=== PATIENT | female | born 1970 | race Caucasian/White ===

== ENCOUNTER → 2020-08-18 | Outpatient (CLI) | payer OTHER ==
--- NOTE | 2020-08-19 14:23 | US ---
EXAMINATION TYPE: US pelvic complete DATE OF EXAM: 08/18/2020 COMPARISON: NONE CLINICAL HISTORY: R10.2 PELVIC PAIN. TECHNIQUE: Transabdominal (TA). Date of LMP: 08-08-20 EXAM MEASUREMENTS: Uterus: 9.8 x 4.3 x 5.6 cm Endometrial Stripe: 0.6 cm Right Ovary: 2.9 x 2.0 x 1.9 cm Left Ovary: 1.7 x 1.4 x 1.5 cm 1. Uterus: Anteverted wnl 2. Endometrium: wnl 3. Right Ovary: There is a 1.8 x 1.3 cm hypoechoic area within the right ovary. Posterior wall enhan cement is not identified. This cannot be classified as a simple cyst. Follow-up exam in 6 weeks or ad ditional workup would be recommended. 4. Left Ovary: wnl 5. Bilateral Adnexa: wnl 6. Posterior cul-de-sac: wnl IMPRESSION: 1. Nonspecific cyst right ovary. Follow-up or additional workup would be recommended. 2. Pelvic ultrasound is otherwise unremarkable.
== END | disposition home or self-care (01) ==
LOC: RADUSWWP 16:13
PROVIDERS: ATTEND Obstetrics & Gynecology
DX: N83.201 Unspecified ovarian cyst, right side (principal)
CPT/HCPCS: 76856

== ENCOUNTER → 2020-10-27 | Outpatient (CLI) | payer OTHER ==
--- NOTE | 2020-11-06 08:54 | MM ---
Reason for exam: screening (asymptomatic). Last mammogram was performed 1 year and 3 months ago. History: Patient had first child at age 34. Physical Findings: A clinical breast exam by your physician is recommended on an annual basis and results should be correlated with mammographic findings. MG 3D Screening Mammo W/Cad Bilateral CC and MLO view(s) were taken. Prior study comparison: July 19, 2019, mammogram, performed at [place]. June 01, 2018, mammogram, performed at [place]. September 10, 2013, bilateral digital screening mammo w/CAD. The breast tissue is heterogeneously dense. This may lower the sensitivity of mammography. Finding: There is a 3 mm high density, circumscribed oval mass located 5 cm from the nipple in the upper outer quadrant, middle position of the right breast. There is a 3mm nodule inferior medial right middle breast 10cm from the nipple. New finding since July 19, 2019. ASSESSMENT: Incomplete: need additional imaging evaluation, BI-RAD 0 RECOMMENDATION: Special view mammogram of both breasts. If lesion persists on supplemental views, image directed ultrasound is recommended. [facility] will attempt to contact patient to return for supplemental views and ultrasound if indicated.
== END | disposition home or self-care (01) ==
LOC: RADMAMWWP 16:42
PROVIDERS: ATTEND Obstetrics & Gynecology
DX: Z12.31 Encounter for screening mammogram for malignant neoplasm of breast (principal)
CPT/HCPCS: 77063; 77067

== ENCOUNTER → 2020-11-17 | Outpatient (CLI) | payer OTHER ==
--- NOTE | 2020-11-20 09:10 | MM ---
Reason for exam: additional evaluation requested from abnormal screening. Last mammogram was performed 1 month ago. History: Patient had first child at age 34. Physical Findings: Nurse did not find any significant physical abnormalities on exam. MG 3D Work Up W/Cad KENDELL Bilateral CC and MLO view(s) were taken. Prior study comparison: October 27, 2020, bilateral MG 3d screening mammo w/cad. July 19, 2019, mammogram, performed at [place]. The breast tissue is heterogeneously dense. This may lower the sensitivity of mammography. 5mm circumscribed isodense nodule lower inner quadrant right breast persists and is new. Ultrasound recommended 3-5 o'clock. Central nodularity left CC view does not clearly persist. 6 month follow up recommended. These results were verbally communicated with the patient and result sheet given to the patient on 11/17/20. ASSESSMENT: Incomplete: need additional imaging evaluation, BI-RAD 0 RECOMMENDATION: Ultrasound of the right breast. (3-5 o'clock)
--- NOTE | 2020-11-20 09:11 | USB ---
Reason for exam: additional evaluation requested from abnormal screening. History: Patient had first child at age 34. US Breast Workup Limited RT Technologist: Swetha Jarquin Right limited breast ultrasound including focal area of concern, retroareolar and axilla demonstrates a 0.6 x 0.5 x 0.4cm possible cystic cluster at 4 o'clock, likely mammographic correlate. Scanned 3-5 o'clock. These results were verbally communicated with the patient and result sheet given to the patient on 11/17/20. ASSESSMENT: Probably benign, BI-RAD 3 RECOMMENDATION: Follow-up diagnostic mammogram of both breasts in 6 months.
== END | disposition home or self-care (01) ==
LOC: RADMAMWWP 14:55
PROVIDERS: ATTEND Obstetrics & Gynecology
DX: R92.2 Inconclusive mammogram (principal)
CPT/HCPCS: 77062; 77066

== ENCOUNTER → 2021-07-05 | Outpatient (CLI) | payer OTHER ==
--- NOTE | 2021-07-06 11:42 | MM ---
Reason for exam: follow-up at short interval from prior study. Last mammogram was performed 8 months ago. History: Patient had first child at age 34. Physical Findings: Nurse Summary: 1cm nodule in the right breast at 10-11 o'clock (nurse TM). MG 3D Diag Mammo W/Cad KENDELL Bilateral CC and MLO view(s) were taken. Prior study comparison: November 17, 2020, bilateral MG 3d work up w/cad KENDELL. October 27, 2020, bilateral MG 3d screening mammo w/cad. The breast tissue is heterogeneously dense. This may lower the sensitivity of mammography. Stable nodule right breast at 4 o'clock. These results were verbally communicated with the patient and result sheet given to the patient on 07/05/21. ASSESSMENT: Incomplete: need additional imaging evaluation, BI-RAD 0 RECOMMENDATION: Ultrasound of the right breast.
--- NOTE | 2021-07-06 11:44 | USB ---
Reason for exam: additional evaluation requested from abnormal screening. History: Patient had first child at age 34. US Breast Limited RT Right limited breast ultrasound including focal area of concern, retroareolar and axilla demonstrates a 0.4 x 0.4 x 0.3cm oval, irregular, cystic cluster at 4 o'clock, a 0.4 x 0.3 x 0.2cm oval, cystic lesion at 10 o'clock, duct ectasia at the posterior nipple and a 0.9 x 1.0 x 0.8cm lymph node at the axilla. These results were verbally communicated with the patient and result sheet given to the patient on 07/05/21. ASSESSMENT: Probably benign, BI-RAD 3 RECOMMENDATION: Routine screening mammogram of both breasts in 1 year.
== END ==
LOC: RADMAMWWP 15:05
PROVIDERS: ATTEND Obstetrics & Gynecology
DX: R92.8 Other abnormal and inconclusive findings on diagnostic imaging of breast (principal); N63.0 Unspecified lump in unspecified breast
CPT/HCPCS: 77062; 77066

== ENCOUNTER 2021-08-16 16:11 | Emergency (ER) | payer OTHER ==
[2021-08-16 16:29] VITALS: TEMP 98.1
[2021-08-16] MEDS ORDERED: ONDANSETRON 4 MG/2 ML VIAL IVP STA (16:51)
[2021-08-16] MEDS ORDERED: SODIUM CHLORIDE 0.9% 1,000 ML IV STA (16:51)
[2021-08-16] MEDS ORDERED: KETOROLAC 15 MG/ML 1 ML VIAL IVP STA (16:51)
--- NOTE | 2021-08-16 16:53 | ED ---
General Adult HPI - General Chief complaint: Shortness of Breath Stated complaint: Hypertension Time Seen by Provider: 08/16/21 16:31 Source: patient Mode of arrival: ambulatory Limitations: no limitations - History of Present Illness Initial comments: Dictation was produced using [employer] dictation software. please excuse any grammatical, word or spelling errors. Chief Complaint: Patient is a 50-year-old female sent in by publicity director for evaluation of hypertension History of Present Illness: Patient is a 42-year-old female she has past medical history of osteoarthritis. She was at her publicity director office for a routine annual female checkup. She had her vitals drawn there and had elevated blood pressures. Her systolic blood pressure was approximately 180. Patient states that she has no active issues at the time. Denies any chest pain or shortness of breath. She does feel a slight fullness to her lower neck upper chest area. She denies that its pain. No associated diaphoresis, nausea or vomiting or radiation of symptoms. Patient does not have a history of coronary artery disease. Patient states she checked her blood pressure last week which was also elevated to the 180s. She had checked her blood pressure proximal to 1 month ago which was also elevated at 160. Patient has not seen primary care doctor regarding this. Patient states that over the last week she's had episodes of seeing a halo around her eyes patient denies any eye symptoms currently. She is trying to make an appointment with adolescent specialist in the near future. Patient has a mild headache. She has history of headaches. She states her headache is typical of her usual headaches. States his whole cranial not severe and not thunderclap. The ROS documented in this emergency department record has been reviewed and confirmed by me. Those systems with pertinent positive or negative responses have been documented in the HPI. All other systems are other negative and/or noncontributory. PHYSICAL EXAM: General Impression: Alert and oriented x3, not in acute distress HEENT: Normocephalic atraumatic, extra-ocular movements intact, pupils equal and reactive to light bilaterally, mucous membranes moist. Cardiovascular: Heart regular rate and rhythm Chest: Able to complete full sentences, no retractions, no tachypnea Abdomen: abdomen soft, non-tender, non-distended, no organomegaly Musculoskeletal: Pulses present and equal in all extremities, no peripheral edema Motor: no focal deficits noted Neurological: CN II-XII grossly intact, no focal motor or sensory deficits noted Skin: Intact with no visualized rashes Psych: Normal affect and mood ED course: No well-appearing female sent in by publicity director for evaluation of h ypertension. Physical examination is benign. Vital signs are stable. Patient has had elevated blood pressures for at least last months. Blood pressure on arrival was 188/93. Patient does not have any features of hypertensive emergency or urgency. She is well-appearing at bedside. EKGs normal. Laboratory evaluation obtained. CBC, metabolic panel is unremarkable. No signs of acute kidney injury. Patient reevaluated 5:51 PM found to be in stable medical condition. She is blood pressure still elevated. clinical presentation consistent with hypertension. She is advised follow-up with primary care doctor or outpatient management of hypertension. Patient is agreeable to plan. Return precautions discussed. EKG interpretation: Ventricular rate 71, normal sinus rhythm, RI interval 144, QRS 70, QTC 425. No RI prolongation, no QTC prolongation, no ST or T-wave changes noted. EKG compared to [default value] showing no changes. Overall, this EKG is unremarkable - Related Data Allergies Allergy/AdvReac Type Severity Reaction Status Date / Time infliximab [From Remicade] Allergy Unknown Verified 08/16/21 16:29 Review of Systems ROS Statement: Those systems with pertinent positive or pertinent negative responses have been documented in the HPI. ROS Other: All systems not noted in ROS Statement are negative. Past Medical History Past Medical History: Osteoarthritis (OA) History of Any Multi-Drug Resistant Organisms: None Reported Additional Past Surgical History / Comment(s): laminectomy, Past Psychological History: No Psychological Hx Reported Smoking Status: Never smoker Past Alcohol Use History: None Reported Past Drug Use History: None Reported General Exam Limitations: no limitations Course Vital Signs 08/16/21 16:25 Temperature 98.1 F Pulse Rate 83 Respiratory 16 Rate Blood Pressure 188/93 O2 Sat by Pulse 98 Oximetry Medical Decision Making - Lab Data Result diagrams: 08/16/21 16:59 08/16/21 16:59 Lab Results 08/16/21 08/16/21 Range/Units 16:59 16:59 WBC 7.2 (3.8-10.6) k/uL RBC 4.79 (3.80-5.40) m/uL Hgb 14.0 (11.4-16.0) gm/dL Hct 42.2 (34.0-46.0) % MCV 88.1 (80.0-100.0) fL MCH 29.2 (25.0-35.0) pg MCHC 33.2 (31.0-37.0) g/dL RDW 13.7 (11.5-15.5) % Plt Count 332 (150-450) k/uL MPV 7.4 Neutrophils % 57 % Lymphocytes % 33 % Monocytes % 4 % Eosinophils % 2 % Basophils % 1 % Neutrophils # 4.1 (1.3-7.7) k/uL Lymphocytes # 2.3 (1.0-4.8) k/uL Monocytes # 0.3 (0-1.0) k/uL Eosinophils # 0.2 (0-0.7) k/uL Basophils # 0.1 (0-0.2) k/uL Sodium 139 (137-145) mmol/L Potassium 4.3 (3.5-5.1) mmol/L Chloride 103 (98-107) mmol/L Carbon Dioxide 27 (22-30) mmol/L Anion Gap 9 mmol/L BUN 18 H (7-17) mg/dL Creatinine 0.65 (0.52-1.04) mg/dL Est GFR (CKD-EPI)AfAm >90 (>60 ml/min/1.73 sqM) Est GFR (CKD-EPI)NonAf >90 (>60 ml/min/1.73 sqM) Glucose 83 (74-99) mg/dL Calcium 9.5 (8.4-10.2) mg/dL Disposition Clinical Impression: Hypertension Disposition: HOME SELF-CARE Condition: Good Instructions (If sedation given, give patient instructions): Hypertension (ED) Is patient prescribed a controlled substance at d/c from ED?: No Referrals: Denise Dyer MD [Primary Care Provider] - 1-2 days
[2021-08-16 17:08] LABS: Basophils # (A) 0.1 k/uL (0-0.2); Basophils % (A) 1 %; Eosinophils # (A) 0.2 k/uL (0-0.7); Eosinophils % (A) 2 %; HCT 42.2 % (34.0-46.0); Lymphocytes # (A) 2.3 k/uL (1.0-4.8); Lymphocytes % (A) 33 %; MCH 29.2 pg (25.0-35.0); MCHC 33.2 g/dL (31.0-37.0); MCV 88.1 fL (80.0-100.0); Mean Platelet Volume 7.4; Monocytes # (A) 0.3 k/uL (0-1.0); Monocytes % (A) 4 %; Neutrophils # (A) 4.1 k/uL (1.3-7.7); Neutrophils % (A) 57 %; Platelet Count 332 k/uL (150-450); RBC 4.79 m/uL (3.80-5.40); RDW 13.7 % (11.5-15.5); WBC 7.2 k/uL (3.8-10.6)
[2021-08-16 17:23] LABS: African American GFR (CKD) >90 (>60 ml/min/1.73 sqM); Anion Gap 9 mmol/L; Blood Urea Nitrogen 18 mg/dL (7-17); Calcium 9.5 mg/dL (8.4-10.2); Carbon Dioxide 27 mmol/L (22-30); Chloride 103 mmol/L (98-107); Glucose 83 mg/dL (74-99); Non-African American GFR(CKD) >90 (>60 ml/min/1.73 sqM); Potassium 4.3 mmol/L (3.5-5.1); Sodium 139 mmol/L (137-145)
[2021-08-16 18:04] VITALS: BP 172/100; PULSE 80; RESP 18
== END 2021-08-16 18:03 | disposition home or self-care (01) ==
LOC: EC 16:11
DX: I10 Essential (primary) hypertension (principal); Z88.8 Allergy status to other drugs, medicaments and biological substances
CPT/HCPCS: 36415; 80048; 85025; 99285; 96374; 96375; 96361; J2405; J1885

== ENCOUNTER → 2022-04-08 | Outpatient (CLI) | payer OTHER ==
[2022-04-08 09:10] VITALS: BP 170/86; PULSE 73; RESP 18; TEMP 98.1
--- NOTE | 2022-04-08 16:18 | P.PAINPG ---
PQRS Measure Charge Sheet Comment: HISTORY OF PRESENT ILLNESS: 51 yr old female as a referral from Dr. Jim presents today w severe and chronic neck pain secondary to spondylosis, DDD, facet arthropathy without myelopathy for evaluation. Pt states her pain level is currently at 6/10 in intensity, constant, sharp in character, localized in the lower cervical spine between the shoulders without radiation of pain. Pain is provoked w lateral flexion and forward flexion. Pain is relieved w medications (Ibuprofen), heat, PT x 2 mo which she is currently in, home stretching regimen, repositioning and rest. PMH: OA, HTN, Hyperlipidemia, Psoriatic Arthritis, Vitamin D Deficiency PSH: Lumbar laminectomy, L Wrist Ganglion Cystectomy SH: Never smoker, No ETOH abuse, No illicit drug use. FH: DM, CAD All: See list Meds: See list REVIEW OF ORGAN SYSTEMS: CONSTITUTIONAL: No fevers or chills. No recent weight loss. NEUROLOGICAL: + numbness and tingling along the distal extremities. No seizure disorders or headaches. MUSCULOSKELETAL: + pain PSYCHIATRIC: Denies current depression or suicidal thoughts. Physical Examinations : Constitutional : Cooperative , not in acute distress . Neurologic : Cranial nerve II to XII intact. No focal neurological deficits. Psychiatric : alert & oriented x 3. Matching mood & appropriate affect. Judgment & insight intact. Musculoskeletal : Cervical Spine Motor strength in the deltoid and biceps: Normal right side. Normal Left side Motor strength biceps and the wrist extensors: Normal right side . Normal left side Motor strength in the triceps muscle: Normal right side. Normal left side Deep tendon reflexes: Normal at the biceps. Normal at Brachioradialis. Normal at triceps Vertebral body tenderness to deep palpation over C6 Cervical facet loading test: positive bilaterally Spurling test: positive bilaterally Neck distraction test: positive bilaterally Twan sign: positive bilaterally Lumbar spine Motor strength lower extremities ,thigh and legs 5/5 Right side , 5/5 Left side Deep tendon reflexes : Normal Knee Jerk. Normal Ankle Jerk Vertebral body tenderness over Lumbar facet Loading Test: positive Right / positive Left Range of motion of the lumbar spine Flexion 30 degrees, extension 10 degrees Straight Leg Raise test: Left/ Right positive at degree Lul test: positive right / positive left. Severe tenderness over the Sacroiliac joint on the Right / Left sides Gaenslen test: positive bilaterally Seated flexion test: positive bilaterally. Sacral spine : Severe tenderness over the Sacroiliac joint: right side / left side Range of motion: Flexion of the lumbar spine <60 degrees Range of motion: Extension of the lumbar spine <20 degrees Gaenslen's Test positive Basil's Test positive Lul test: positive right side / left side Thigh Thrust Test Sacral Thrust Test Imaging: MRI without contrast of the cervical spine from 03/13/22 reviewed EMG of the upper extremities from 01/31/22 was negative Assessment/ Plan : Cervical DDD, Cervical spondylosis Recommendation of DASIA C6-C7 #1. Patient may need a series of injections, up to 3 within a six-month timeframe, for optimal pain relief. Risks, benefits of procedure discussed and patient verbalized understanding. Denies aspirin or anti- coagulant use or medical history of diabetes. Protocol for discontinuation/ continuation of medications ngozi procedure discussed. All questions answered. I have spent greater than 30 minutes on patient care today. Dr Schneider was available by phone for the evaluation of this patient. The time was used to review the medical records including relevant urine studies and Prescription history (MAPs), review of the available imaging, evaluation and examination of the patient, coordination of care with the medical staff and if applicable referring physicians, as well as creation of the medical record Controlled Substance Measures - Controlled Substance Measures Is patient prescribed a controlled substance at discharge?: No
== END | disposition home or self-care (01) ==
LOC: PNWHC3 07:57
PROVIDERS: ATTEND Specialist
DX: M54.12 Radiculopathy, cervical region (principal)
CPT/HCPCS: 99211

== ENCOUNTER → 2022-11-25 | Outpatient (CLI) | payer OTHER ==
--- NOTE | 2022-11-26 19:21 | MM ---
Reason for Exam: Screening (asymptomatic). Last mammogram was performed 1 year(s) and 5 month(s) ago. Patient History: Menarche at age 14. First Full-Term at age 34. Late child-bearing (after 30). Patient has history of breast feeding. Last menstrual period: 11/08/2022 Risk Values: Iesha 5 year model risk: 1.3%. NCI Lifetime model risk: 12.1%. Prior Study Comparison: 10/27/2020 Bilateral Screening Mammogram, [facility]. 11/17/2020 Bilateral Diagnostic Mammogram, [facility]. 07/05/2021 Bilateral Diagnostic Mammogram, [facility]. Tissue Density: The breast tissue is heterogeneously dense. This may lower the sensitivity of mammography. Findings: Analyzed By CAD. Chronic nodularity medial right breast. There is no suspicious group of microcalcifications or new suspicious mass in either breast. Overall Assessment: Benign, BI-RAD 2 Management: Screening Mammogram of both breasts in 1 year. . Patient should continue monthly self-breast exams. A clinical breast exam by your physician is recommended on an annual basis. This exam should not preclude additional follow-up of suspicious palpable abnormalities. Note on Iesha scores and lifetime risk: 1. A Iesha score greater than 3% is considered moderate risk. If this is the case, consider specialist referral to assess eligibility for a risk reducing agent. 2. If overall lifetime risk for the development of breast cancer is 20% or higher, the patient may qualify for future screening with alternating mammogram and breast MRI. Electronically signed and approved by: Behzad Bentley M.D. Radiologist
== END | disposition home or self-care (01) ==
LOC: RADMAMWWP 16:46
PROVIDERS: ATTEND Obstetrics & Gynecology
DX: Z12.31 Encounter for screening mammogram for malignant neoplasm of breast (principal)
CPT/HCPCS: 77063; 77067

== ENCOUNTER → 2024-01-02 | Outpatient (CLI) | payer OTHER ==
--- NOTE | 2024-01-05 13:20 | MM ---
Reason for Exam: Screening (asymptomatic). Last mammogram was performed 1 year(s) and 1 month(s) ago. Patient History: Menarche at age 14. First Full-Term at age 34. Late child-bearing (after 30). Patient has history of breast feeding. Risk Values: Iesha 5 year model risk: 1.4%. NCI Lifetime model risk: 12.0%. Prior Study Comparison: 11/17/2020 Bilateral Diagnostic Mammogram, [facility]. 07/05/2021 Bilateral Diagnostic Mammogram, [facility]. 11/25/2022 Bilateral MG 3D screening mammo w/cad, [facility]. Tissue Density: There are scattered areas of fibroglandular density. Findings: Analyzed By CAD. There is no suspicious group of microcalcifications or new suspicious mass in either breast. Overall Assessment: Negative, BI-RAD 1 Management: Screening Mammogram of both breasts in 1 year. . Patient should continue monthly self-breast exams. A clinical breast exam by your physician is recommended on an annual basis. This exam should not preclude additional follow-up of suspicious palpable abnormalities. Note on Iesha scores and lifetime risk: 1. A Iesha score greater than 3% is considered moderate risk. If this is the case, consider specialist referral to assess eligibility for a risk reducing agent. 2. If overall lifetime risk for the development of breast cancer is 20% or higher, the patient may qualify for future screening with alternating mammogram and breast MRI. Electronically signed and approved by: Ty Pinedo M.D. Radiologis
== END | disposition home or self-care (01) ==
LOC: RADMAMWWP 13:43
PROVIDERS: ATTEND Obstetrics & Gynecology
DX: Z12.31 Encounter for screening mammogram for malignant neoplasm of breast (principal)
CPT/HCPCS: 77063; 77067

== ENCOUNTER → 2024-10-13 | Outpatient (CLI) | payer OTHER ==
[2024-10-13 15:54] LABS: Basophils # (A) 0.07 X 10*3/uL (0.00-0.10); Basophils % (A) 1.6 %; Eosinophils # (A) 0.13 X 10*3/uL (0.04-0.35); Eosinophils % (A) 2.9 %; HCT 46.3 % (37.2-46.3); HGB 14.4 g/dL (12.0-15.0); Lymphocytes # (A) 1.73 X 10*3/uL (0.90-5.00); Lymphocytes % (A) 38.6 %; MCH 27.9 pg (27.0-32.0); MCHC 31.1 g/dL (32.0-37.0); MCV 89.6 FL (80.0-97.0); Monocytes # (A) 0.25 X 10*3/uL (0.20-1.00); Monocytes % (A) 5.6 %; NRBC Per 100 WBC 0 X 10*3/uL (0.00-0.01); Neutrophils # (A) 2.29 X 10*3/uL (1.80-7.70); Neutrophils % (A) 51.1 %; Platelet Count 300 X 10*3/uL (140-440); RBC 5.17 X 10*6/uL (4.10-5.20); RDW 13.5 % (11.5-14.5); WBC 4.48 X 10*3/uL (4.50-10.00)
[2024-10-13 16:23] LABS: ALT 30 U/L (8-44); AST 20 U/L (13-35); Albumin 4.3 g/dL (3.8-4.9); Albumin/Globulin Ratio 1.54 Ratio (1.60-3.17); Alkaline Phosphatase 88 U/L (41-126); Bilirubin, Conjugated <0.20 mg/dL (0.20-0.40); Bilirubin,Unconjugated >0.10 mg/dL (0.20-1.00); Globulin 2.8 g/dL (1.6-3.3); Total Bilirubin 0.3 mg/dL (0.3-1.2); Total Protein 7.1 g/dL (6.2-8.2)
== END | disposition home or self-care (01) ==
LOC: LABWHC1 07:57
PROVIDERS: ATTEND Physician Assistant
DX: Z51.81 Encounter for therapeutic drug level monitoring (principal); L40.50 Arthropathic psoriasis, unspecified; L40.9 Psoriasis, unspecified; Z79.899 Other long term (current) drug therapy
CPT/HCPCS: 36415; 80076; 82565; 85025

== ENCOUNTER 2024-11-26 09:55 | Emergency (ER) | payer OTHER ==
[2024-11-26 09:59] VITALS: RESP 18
--- NOTE | 2024-11-26 10:26 | ED ---
Abdominal Pain HPI - General Chief Complaint: Abdominal Pain Stated Complaint: abd pain Time Seen by Provider: 11/26/24 10:25 Source: patient, RN notes reviewed Mode of arrival: ambulatory Limitations: no limitations - History of Present Illness Initial Comments: 54-year-old female presenting to the ER for evaluation of epigastric abdominal pain. Patient states after eating dinner on Friday night around 7 PM she started to experience a cramping epigastric abdominal pain. She states it feels like she is wearing her bra too tight. She does report pain is intermittent with no known triggers. She states around 10 PM on Friday she started to hav e nausea and vomiting along with diarrhea. She denies any hematic emesis, coffee ground emesis, hematochezia or melena. Patient states this has happened in the past and she contributed it to eating foods with a large amount of onion or garlic. She does report a history of a stomach ulcer and she states this feels mildly similar. Patient has taken Pepcid and antiacids without relief of symptoms. She is also reported pain is improved with heating pad and hot showers. She denies any fevers, chills, chest pain, shortness of breath, dizziness or lightheadedness. No urinary complaints. No other complaints at this time - Related Data Home Medications Medication Instructions Recorded Confirmed Cholecalciferol [Vitamin D3 (25 25 mcg PO DAILY 11/26/24 11/26/24 Mcg = 1000 Iu)] Fish Oil/Dha/Epa [Fish Oil 1,200 1 cap PO DAILY 11/26/24 11/26/24 mg Fish Oil] Leflunomide [Arava] 20 mg PO DAILY 11/26/24 11/26/24 Tretinoin [Tretinoin 0.025%] 1 applic TOPICAL HS 11/26/24 11/26/24 Triamcinolone 0.1% Ointment 1 applic TOPICAL DAILY PRN 11/26/24 11/26/24 [Kenalog 0.1% Ointment] Ustekinumab [Stelara] 45 mg SQ Q84D 11/26/24 11/26/24 hydroCHLOROthiazide [Hydrodiuril] 25 mg PO DAILY 11/26/24 11/26/24 Allergies Allergy/AdvReac Type Severity Reaction Status Date / Time infliximab [From Remicade] Allergy Anaphylaxis Verified 11/26/24 12:48 Review of Systems ROS Statement: Those systems with pertinent positive or pertinent negative responses have been documented in the HPI. ROS Other: All systems not noted in ROS Statement are negative. Past Medical History Past Medical History: Osteoarthritis (OA) History of Any Multi-Drug Resistant Organisms: None Reported Past Surgical History: Back Surgery Additional Past Surgical History / Comment(s): laminectomy, kidney stone removal, Past Psychological History: No Psychological Hx Reported Smoking Status: Never smoker Past Alcohol Use History: Rare Past Drug Use History: None Reported General Exam Limitations: no limitations General appearance: alert, in no apparent distress Respiratory exam: Present: normal lung sounds bilaterally. Absent: respiratory distress, wheezes, rales, rhonchi, stridor Cardiovascular Exam: Present: regular rate, normal rhythm, normal heart sounds. Absent: systolic murmur, diastolic murmur, rubs, gallop, clicks GI/Abdominal exam: Present: soft, tenderness (epigastric/RUQ), normal bowel sounds Neurological exam: Present: alert, oriented X3, CN II-XII intact Skin exam: Present: warm, dry, intact, normal color. Absent: rash Course Vital Signs 11/26/24 11/26/24 09:56 12:58 Temperature 98.4 F Pulse Rate 80 67 Respiratory 18 18 Rate Blood Pressure 185/114 147/89 O2 Sat by Pulse 98 98 Oximetry - Reevaluation(s) Reevaluation #1: 11/26/24 12:52 Case discussed with [facility], accepts transfer. Medical Decision Making - Medical Decision Making Was pt. sent in by a medical professional or institution (, PA, TELEVISION NEWS PRODUCER, urgent care, hospital, or jail...) When possible be specific @ -No Did you speak to anyone other than the patient for history (EMS, parent, family, police, friend...)? What history was obtained from this source @ -No Did you review nursing and triage notes (agree or disagree)? Why? @ -I reviewed and agree with nursing and triage notes Were old charts reviewed (outside hosp., previous admission, EMS record, old EKG, old radiological studies, urgent care reports/EKG's, jail records)? Report findings @ -No old charts were reviewed Differential Diagnosis (chest pain, altered mental status, abdominal pain women, abdominal pain men, vaginal bleeding, weakness, fever, dyspnea, syncope, headache, dizziness, GI bleed, back pain, seizure, CVA, palpatations, mental health, musculoskeletal)? @ -Differential Abdominal Pain Women:Appendicitis, Cholecystitis, diverticulosis, ischemic bowel, pancreatitis, hepatitis, UTI, gastroenteritis, AAA, incarcerated hernia, bowel obstruction, constipation, inflammatory bowel, hepatitis, peptic ulcer disease, splenic infarction, perforated viscus, vulvitis, ovarian torsion, PID, kidney stone, placenta abruption, this is not meant to be an all-inclusive list EKG interpreted by me (3pts min.). @ -As above X-rays interpreted by me (1pt min.). @ -None done CT interpreted by me (1pt min.). @ -None done U/S interpreted by me (1pt. min.). @ -Gallbladder ultrasound showing a probable septated cyst near the rupinder hepatis. No gallbladder wall thickening or pericholecystic fluid. Common bile duct mildly enlarged measuring 0.62 cm. What testing was considered but not performed or refused? (CT, X-rays, U/S, labs)? Why? @ -None What meds were considered but not given or refused? Why? @ -None Did you discuss the management of the patient with other professionals (professionals i.e. , PA, TELEVISION NEWS PRODUCER, lab, RT, psych nurse, social organization professor, plant tender, teacher, hospital admissions officer, clinical case manager)? Give summary @ -Yes, case discussed with Dr. Tej Rosado. He accepts transfer for GI consultation. Was smoking cessation discussed for >3mins.? @ -No Was critical care preformed (if so, how long)? @ -No Were there social determinants of health that impacted care today? How? (Homelessness, low income, unemployed, alcoholism, drug addiction, transportation, low edu. Level, literacy, decrease access to med. care, group home, rehab)? @ -No Was there de-escalation of care discussed even if they declined (Discuss DNR or withdrawal of care, Hospice)? DNR status @ -No What co-morbidities impacted this encounter? (DM, HTN, Smoking, COPD, CAD, Cancer, CVA, ARF, Chemo, Hep., AIDS, mental health diagnosis, sleep apnea, morbid obesity)? @ -None Was patient admitted / discharged? Hospital course, mention meds given and route, prescriptions, significant lab abnormalities, going to OR and other pertinent info. @ -Transferred. 54-year-old female presenting the ER for evaluation of epigastric abdominal pain. Upon arrival patient hypertensive 185/114 but is oth erwise acceptable limits. Patient appears well-developed and well-nourished and no signs of acute distress. There is epigastric/right upper quadrant abdominal discomfort. Normal bowel sounds without rebound or guarding. Laboratory studies obtained remarkable for transaminitis with a total bilirubin of 3.5, AST 365, ALT 508, alk phos 139. WBC 6.12, lactic 1.8. Lipase 68. Urinalysis with 12 WBCs and large leukocyte esterases sample is contaminated with 8 epithelial cells, urine will be sent for culture prior to antibiotic initiation. EKG showing a sinus rhythm no acute evidence of infarct or ischemia. Gallbladder ultrasound showed a probable septated cyst near the rupinder hepatis there is no gallbladder wall thickening or pericholecystic fluid. Common bile duct is mildly dilated 0.62 cm. Due to concern of choledocholithiasis with common bile duct dilation and transaminitis, transferred was considered, discussed and accepted by Dr. Burnham, [facility], for further evaluation. Patient received symptomatic treatment in the ER with IV fluids, Toradol, Zofran, Protonix and Dilaudid. Blood cultures obtained prior to Zosyn initiation for infection prophylaxis. Patient agreeable for transfer and will be transferred in stable condition [facility]. Case discussed with ED attending, Dr. Bocanegra. Undiagnosed new problem with uncertain prognosis? @ -No Drug Therapy requiring intensive monitoring for toxicity (Heparin, Nitro, In sulin, Cardizem)? @ -No Were any procedures done? @ -No Diagnosis/symptom? @ -Transaminitis/abdominal pain r/o choledocholithiasis Acute, or Chronic, or Acute on Chronic? @ -Acute Uncomplicated (without systemic symptoms) or Complicated (systemic symptoms)? @ -Complicated Side effects of treatment? @ -No Exacerbation, Progression, or Severe Exacerbation? @ -No Poses a threat to life or bodily function? How? (Chest pain, USA, SC, pneumonia, PE, COPD, DKA, ARF, appy, cholecystitis, CVA, Diverticulitis, Homicidal, Suicidal, threat to staff... and all critical care pts) @ -Yes, can lead to cholangitis and/or sepsis. - Lab Data Result diagrams: 11/26/24 10:44 11/26/24 10:44 Lab Results 11/26/24 11/26/24 11/26/24 Range/Units 10:44 10:44 10:44 WBC 6.12 (4.50-10.00) 10*3/uL RBC 5.31 H (4.10-5.20) 10*6/uL Hgb 15.4 H (12.0-15.0) g/dL Hct 45.6 (37.2-46.3) % MCV 85.9 (80.0-97.0) fL MCH 29.0 (27.0-32.0) pg MCHC 33.8 (32.0-37.0) g/dL Plt Count 265 (140-440) 10*3/uL MPV 10.9 (9.5-12.2) fL Immature Gran % (Auto) 0 % Neutrophils % 77.1 % Lymphocytes % 14.9 % Monocytes % 4.4 % Eosinophils % 2.6 % Basophils % 1.0 % Immature Gran # 0.00 (0.00-0.04) 10*3/uL Neutrophils # 4.72 (1.80-7.70) 10*3/uL Lymphocytes # 0.91 (0.90-5.00) 10*3/uL Monocytes # 0.27 (0.20-1.00) 10*3/uL Eosinophils # 0.16 (0.04-0.35) 10*3/uL Basophils # 0.06 (0.00-0.10) 10*3/uL Sodium 141 (137-145) mmol/L Potassium 3.6 (3.5-5.1) mmol/L Chloride 103 (98-107) mmol/L Carbon Dioxide 30 (22-30) mmol/L Anion Gap 8 mmol/L BUN 21 H (7-17) mg/dL Creatinine 0.57 (0.52-1.04) mg/dL Est GFR (CKD-EPI)AfAm >90 (>60 ml/min/1.73 sqM) Est GFR (CKD-EPI)NonAf >90 (>60 ml/min/1.73 sqM) Glucose 134 H (74-99) mg/dL Plasma Lactic Acid Viktor (0.7-2.0) mmol/L Calcium 10.0 (8.4-10.2) mg/dL Total Bilirubin 3.5 H (0.2-1.3) mg/dL AST 365 H (14-36) U/L ALT 508 H (4-34) U/L Alkaline Phosphatase 139 H (38-126) U/L Total Protein 7.4 (6.3-8.2) g/dL Albumin 4.4 (3.5-5.0) g/dL Amylase 51 (30-110) U/L Lipase 68 (23-300) U/L Urine Color Yellow Urine Appearance Cloudy H (Clear) Urine pH 6.0 (5.0-8.0) Ur Specific [place] 1.020 (1.001-1.035) Urine Protein Trace H (Negative) Urine Glucose (UA) Negative (Negative) Urine Ketones Negative (Negative) Urine Blood Negative (Negative) Urine Nitrite Negative (Negative) Urine Bilirubin 1+ H (Negative) Urine Urobilinogen 3.0 (<2.0) mg/dL Ur Leukocyte Esterase Large H (Negative) Urine WBC 12 H (0-5) /hpf Ur Squamous Epith Cells 8 H (0-4) /hpf Uric Acid Crystals Occasional H (None) /hpf Urine Bacteria Rare H (None) /hpf Urine Mucus Rare H (None) /hpf 11/26/24 Range/Units 10:44 WBC (4.50-10.00) 10*3/uL RBC (4.10-5.20) 10*6/uL Hgb (12.0-15.0) g/dL Hct (37.2-46.3) % MCV (80.0-97.0) fL MCH (27.0-32.0) pg MCHC (32.0-37.0) g/dL Plt Count (140-440) 10*3/uL MPV (9.5-12.2) fL Immature Gran % (Auto) % Neutrophils % % Lymphocytes % % Monocytes % % Eosinophils % % Basophils % % Immature Gran # (0.00-0.04) 10*3/uL Neutrophils # (1.80-7.70) 10*3/uL Lymphocytes # (0.90-5.00) 10*3/uL Monocytes # (0.20-1.00) 10*3/uL Eosinophils # (0.04-0.35) 10*3/uL Basophils # (0.00-0.10) 10*3/uL Sodium (137-145) mmol/L Potassium (3.5-5.1) mmol/L Chloride (98-107) mmol/L Carbon Dioxide (22-30) mmol/L Anion Gap mmol/L BUN (7-17) mg/dL Creatinine (0.52-1.04) mg/dL Est GFR (CKD-EPI)AfAm (>60 ml/min/1.73 sqM) Est GFR (CKD-EPI)NonAf (>60 ml/min/1.73 sqM) Glucose (74-99) mg/dL Plasma Lactic Acid Viktor 1.8 (0.7-2.0) mmol/L Calcium (8.4-10.2) mg/dL Total Bilirubin (0.2-1.3) mg/dL AST (14-36) U/L ALT (4-34) U/L Alkaline Phosphatase (38-126) U/L Total Protein (6.3-8.2) g/dL Albumin (3.5-5.0) g/dL Amylase (30-110) U/L Lipase (23-300) U/L Urine Color Urine Appearance (Clear) Urine pH (5.0-8.0) Ur Specific [place] (1.001-1.035) Urine Protein (Negative) Urine Glucose (UA) (Negative) Urine Ketones (Negative) Urine Blood (Negative) Urine Nitrite (Negative) Urine Bilirubin (Negative) Urine Urobilinogen (<2.0) mg/dL Ur Leukocyte Esterase (Negative) Urine WBC (0-5) /hpf Ur Squamous Epith Cells (0-4) /hpf Uric Acid Crystals (None) /hpf Urine Bacteria (None) /hpf Urine Mucus (None) /hpf - EKG Data -: EKG Interpreted by Me EKG Comments: EKG taken at 10: 40 showing a sinus rhythm. No ST segment elevations or depressions. No T wave inversions. Ventricular rate 66, CT interval 140, QRS duration 83, QT/QTc 391/405 - Radiology Data Radiology results: report reviewed, image reviewed Disposition Clinical Impression: Transaminitis, Abdominal pain Disposition: OTHER INSTITUTION NOT DEFINED Condition: Stable Referrals: Ana Galdamez DO [Primary Care Provider] - 1-2 days Time of Disposition: 12:53 - Out of Hospital Transfer - Req. Specs Out of Hospital Transfer - Requested Specifics: Other Emergency Center ([facility], GI services)
[2024-11-26] MEDS: ONDANSETRON 4 MG/2 ML VIAL IVP STA (10:47)
[2024-11-26] MEDS: PANTOPRAZOLE 40 MG/10 ML VIAL IVP STA (10:48)
[2024-11-26] MEDS: KETOROLAC 15 MG/ML 1 ML VIAL IVP STA (10:48)
[2024-11-26] MEDS: HYDROmorphone 0.5 MG/0.5 ML SYRINGE IVP STA ×2 (10:49→13:29)
[2024-11-26] MEDS: LACTATED RINGERS 1,000 ML IV ONE (10:49)
[2024-11-26 11:15] LABS: Basophils # (A) 0.06 10*3/uL (0.00-0.10); Eosinophils # (A) 0.16 10*3/uL (0.04-0.35); Eosinophils % (A) 2.6 %; HCT 45.6 % (37.2-46.3); HGB 15.4 g/dL (12.0-15.0); Lymphocytes # (A) 0.91 10*3/uL (0.90-5.00); Lymphocytes % (A) 14.9 %; MCHC 33.8 g/dL (32.0-37.0); MCV 85.9 fL (80.0-97.0); Mean Platelet Volume 10.9 fL (9.5-12.2); Monocytes # (A) 0.27 10*3/uL (0.20-1.00); Monocytes % (A) 4.4 %; Neutrophils # (A) 4.72 10*3/uL (1.80-7.70); Neutrophils % (A) 77.1 %; Platelet Count 265 10*3/uL (140-440); RBC 5.31 10*6/uL (4.10-5.20); RDW 12.7 % (11.5-14.5); WBC 6.12 10*3/uL (4.50-10.00)
--- NOTE | 2024-11-26 11:35 | US ---
EXAMINATION TYPE: US gallbladder DATE OF EXAM: 11/26/2024 COMPARISON: NONE CLINICAL INDICATION: Female, 54 years old with history of epigastric/RUQ pain; epigastric pain x 2 da ys TECHNIQUE: Grayscale and color Doppler imaging of the right upper quadrant was performed. FINDINGS: EXAM MEASUREMENTS: Liver Length: 14.2 cm Gallbladder Wall: 0.25 cm CBD: 0.62 cm Right Kidney: 10.3 x 5.1 x 5.1 cm MECHANICAL PRODUCT ENGINEER NOTES: Pancreas: tail slightly obscured by bowel gas, appears wnl Liver: heterogeneous, cystic area seen near rupindre hepatis possible GB neck fold vs cyst measuring 1. 9 x 2.1 x 1.2cm Gallbladder: wnl Evidence for sonographic Biswas's sign: No CBD: wnl Right Kidney: wnl IMPRESSION: Probable septated cyst near the rupinder hepatis. No gallbladder wall thickening or pericholecystic flui d. Common bile duct is borderline with regards to size. [facility], , 11/26/2024 11:33 AM
[2024-11-26 11:37] LABS: ALT 508 U/L (4-34); AST 365 U/L (14-36); African American GFR (CKD) >90 (>60 ml/min/1.73 sqM); Albumin 4.4 g/dL (3.5-5.0); Alkaline Phosphatase 139 U/L (38-126); Amylase 51 U/L (30-110); Anion Gap 8 mmol/L; Blood Urea Nitrogen 21 mg/dL (7-17); Carbon Dioxide 30 mmol/L (22-30); Chloride 103 mmol/L (98-107); Glucose 134 mg/dL (74-99); Lipase 68 U/L (23-300); Non-African American GFR(CKD) >90 (>60 ml/min/1.73 sqM); Potassium 3.6 mmol/L (3.5-5.1); Sodium 141 mmol/L (137-145); Total Bilirubin 3.5 mg/dL (0.2-1.3); Total Protein 7.4 g/dL (6.3-8.2)
[2024-11-26 11:40] LABS: Appearance,Urine Cloudy (Clear); Bacteria,Urine Rare /hpf; Bilirubin,Urine 1+ (Negative); Blood,Urine Negative (Negative); Color,Urine Yellow; Glucose,Urine (UA) Negative (Negative); Ketones,Urine Negative (Negative); Leukocyte Esterase,Urine Large (Negative); Mucus,Urine Rare /hpf; Nitrite,Urine Negative (Negative); Protein,Urine Trace (Negative); Squamous Epithelial Cell,Urine 8 /hpf (0-4); Uric Acid Crystals,Urine Occasional /hpf; WBC,Urine 12 /hpf (0-5)
[2024-11-26] MEDS: PIPERACILLIN-TAZOBACTAM 3.375 GM in SODIUM CHLORIDE 0.9% 100 ML IVPB STA (13:30)
[2024-11-26 13:42] VITALS: BP 147/86; PULSE 72; TEMP 98.3
== END 2024-11-26 13:48 | disposition other institution (70) ==
LOC: EC 09:55
DX: R74.01 Elevation of levels of liver transaminase levels (principal); R10.13 Epigastric pain; Z88.8 Allergy status to other drugs, medicaments and biological substances
CPT/HCPCS: 36415; 93005; 80053; 82150; 83605; 83690; 85025; 81001; 87040; 87086; 76705; 99285; 96365; 96375 ×4; 96361 ×2; J2543; J2405; J1885; J1171; J2470; 87077; 87186

== ENCOUNTER → 2025-01-10 | Outpatient (CLI) | payer OTHER ==
[2025-01-10 18:27] LABS: Basophils # (A) 0.09 X 10*3/uL (0.00-0.10); Basophils % (A) 1.7 %; Eosinophils # (A) 0.17 X 10*3/uL (0.04-0.35); Eosinophils % (A) 3.3 %; HCT 36.8 % (37.2-46.3); Lymphocytes # (A) 2.08 X 10*3/uL (0.90-5.00); Lymphocytes % (A) 40.2 %; MCH 25.9 pg (27.0-32.0); MCHC 29.9 g/dL (32.0-37.0); MCV 86.6 FL (80.0-97.0); Mean Platelet Volume 10.5 FL (9.5-12.2); Monocytes # (A) 0.42 X 10*3/uL (0.20-1.00); Monocytes % (A) 8.1 %; NRBC Per 100 WBC 0 X 10*3/uL (0.00-0.01); Neutrophils # (A) 2.41 X 10*3/uL (1.80-7.70); Neutrophils % (A) 46.5 %; Platelet Count 385 X 10*3/uL (140-440); RBC 4.25 X 10*6/uL (4.10-5.20); RDW 14.1 % (11.5-14.5); WBC 5.18 X 10*3/uL (4.50-10.00)
[2025-01-10 18:39] LABS: ALT 23 U/L (8-44); AST 21 U/L (13-35); Albumin 4.3 g/dL (3.8-4.9); Albumin/Globulin Ratio 1.72 Ratio (1.60-3.17); Alkaline Phosphatase 95 U/L (41-126); BUN/Creat Ratio 25.86 Ratio (12.00-20.00); Bilirubin, Conjugated <0.20 mg/dL (0.20-0.40); Bilirubin,Unconjugated >0.10 mg/dL (0.20-1.00); Blood Urea Nitrogen 18.1 mg/dL (9.0-27.0); Calcium 9.4 mg/dL (8.7-10.3); Carbon Dioxide 28.2 mmol/L (21.6-31.8); Chloride 104 mmol/L (96-109); Globulin 2.5 g/dL (1.6-3.3); Glucose 83 mg/dL (70-110); Potassium 4.5 mmol/L (3.5-5.5); Sodium 143 mmol/L (135-145); Total Bilirubin 0.3 mg/dL (0.3-1.2); Total Protein 6.8 g/dL (6.2-8.2)
== END | disposition home or self-care (01) ==
LOC: LABWHC1 13:57
PROVIDERS: ATTEND Physician Assistant
DX: Z51.81 Encounter for therapeutic drug level monitoring (principal); L40.50 Arthropathic psoriasis, unspecified; D84.821 Immunodeficiency due to drugs; Z79.899 Other long term (current) drug therapy
CPT/HCPCS: 36415; 80053; 82248; 85025

== ENCOUNTER → 2025-02-04 | Outpatient (CLI) | payer OTHER ==
--- NOTE | 2025-02-07 09:36 | MM ---
Reason for Exam: Screening (asymptomatic). Last mammogram was performed 1 year(s) and 1 month(s) ago. Patient History: Menarche at age 14. First Full-Term at age 34. Late child-bearing (after 30). Perimenopausal. Patient has history of breast feeding. Risk Values: Iesha 5 year model risk: 1.5%. NCI Lifetime model risk: 11.8%. Prior Study Comparison: 07/05/2021 Bilateral Diagnostic Mammogram, [facility]. 11/25/2022 Bilateral MG 3D screening mammo w/cad, [facility]. 01/02/2024 Bilateral MG 3D screening mammo w/cad, [facility]. Tissue Density: There are scattered areas of fibroglandular density. Findings: Analyzed By CAD. There is no suspicious group of microcalcifications or new suspicious mass in either breast. Overall Assessment: Negative, BI-RAD 1 Management: Screening Mammogram of both breasts in 1 year. . Patient should continue monthly self-breast exams. A clinical breast exam by your physician is recommended on an annual basis. This exam should not preclude additional follow-up of suspicious palpable abnormalities. Note on Iesha scores and lifetime risk: 1. A Iesha score greater than 3% is considered moderate risk. If this is the case, consider specialist referral to assess eligibility for a risk reducing agent. 2. If overall lifetime risk for the development of breast cancer is 20% or higher, the patient may qualify for future screening with alternating mammogram and breast MRI. [facility], , 02/07/2025 8:37 AM. Electronically signed and approved by: Ty Pinedo M.D. Radiologis
== END | disposition home or self-care (01) ==
LOC: RADMAMWWP 15:18
PROVIDERS: ATTEND Family Medicine
DX: Z12.31 Encounter for screening mammogram for malignant neoplasm of breast (principal); R92.323 Mammographic fibroglandular density, bilateral breasts
CPT/HCPCS: 77063; 77067